=== PATIENT | female | born 1945 | race Caucasian/White ===

== ENCOUNTER → 2017-01-02 | Outpatient (CLI) | payer MEDICARE, OTHER ==
--- NOTE | 2017-01-02 10:58 | RADRPT ---
EXAM DATE/TIME: 01/02/2017 00:00 [place] COMPARISON: No previous studies available for comparison. INDICATIONS : Dysphagia FLUORO TIME: 1 minutes IMAGE COUNT: 02 CONTRAST: Dose as prescribed by speech pathologist. MEDICAL HISTORY : None. SURGICAL HISTORY : None. ENCOUNTER: Initial ACUITY: 1 day PAIN SCORE: 0/10 LOCATION: Chest FINDINGS: A modified barium swallow was performed with speech pathology. Patient was given a variety of liquids to swallow. No issues with the oral phase of deglutition. Patient did show multiple episodes of mild laryngeal pe netration with thin liquids. There was no tom aspiration. The thicker consistencies of barium were tolerated without difficulty. For a full detailed report, see report by the speech pathologist. CONCLUSION: Modified barium swallow as above. Rito Segura MD on January 02, 2017 at 10:56 Board Certified Radiologist. This report was verified electronically.
== END ==
LOC: HRAD 09:42
PROVIDERS: ATTEND Internal Medicine Gastroenterology
DX: R13.10 Dysphagia, unspecified (principal)
CPT/HCPCS: 74230; 92611; G8996; G8997; G8998